=== PATIENT | male | born 1980 | race Caucasian/White ===

== ENCOUNTER 2023-11-20 15:48 | Emergency (ER) | payer OTHER, MEDICAID, SELFPAY ==
[2023-11-20 15:58] VITALS: BP 163/94; PULSE 78; RESP 18; TEMP 36.6; O2SAT 99; BMI 34.9
--- NOTE | 2023-11-20 17:36 | ED.WOUNDLAC ---
HPI - Wound/Laceration <León Rai PA-C - Last Filed: 11/20/23 17:52> General Chief Complaint: Wound/Laceration Stated Complaint: sores on face Time Seen by Provider: 11/20/23 16:17 Source: patient Mode of arrival: Ambulatory History of Present Illness HPI narrative: This is a 43-year-old male presents to the emergency department due to multiple ?sores? on his face as well as as belt line. States he has a history of MRSA infections and this feels similar. Denies any fevers, spreading redness, injuries, or any other concerning signs or symptoms. Related Data Previous Rx's Medication Instructions Recorded sulfamethoxazole 800 1 tab PO BID #14 tabs 11/20/23 mg-trimethoprim 160 mg tablet (Bactrim DS) Allergies Allergy/AdvReac Type Severity Reaction Status Date / Time morphine Allergy Severe Rash Verified 11/20/23 16:04 Review of Systems <León Rai PA-C - Last Filed: 11/20/23 17:52> Review of Systems Narrative: GENERAL: Denies chills, fatigue, malaise, fever, sweats. HEENT: Denies sinus pain, ear pain, sore throat, difficulty swallowing, dizziness. RESPIRATORY: Denies dyspnea, cough, wheezing, hemoptysis, sputum. CARDIOVASCULAR: Denies chest pain, palpitations, orthopnea, edema, GASTROINTESTINAL: Denies nausea, vomiting, abdominal pain, diarrhea, constipation, melena. : Denies dysuria, frequency, incontinence, hematuria, urinary retention. MUSCULOSKELETAL: denies weakness, joint pain, or bony pain SKIN: Reports skin sores NEUROLOGIC: Denies weakness, headache, numbness, change in speech, confusion, seizures, incoordination. PSYCHIATRIC: No concerning psychosocial issues. 12 point review of systems is negative except for those stated above Patient History <SESAR Marques Last Filed: 11/20/23 17:52> Social History Smoking Status: Current some day smoker Smoking Status: Current some day smoker alcohol intake frequency: a few times a month Substance Use Type: marijuana, crack/cocaine, painkillers and methamphetamine Exam <SESAR Marques Last Filed: 11/20/23 17:52> Narrative Exam Narrative: GENERAL: Well-developed patient, in mild distress. HEAD: Atraumatic. Normocephalic. EYES: Pupils equal round and reactive. Extraocular motions intact. No scleral icterus. No injection or drainage. ENT: Nose without bleeding, purulent drainage. Throat without erythema, tonsillar hypertrophy or exudate. Airway patent. NECK: Trachea midline. Non tender EXTREMITIES: No edema or joint tenderness. NEURO: AOx3. SKIN: Multiple sores across the well as belt line with purulent discharge consistent with a MRSA infection Initial Vital Signs Initial Vital Signs: Vital Signs Temperature 97.8 F 11/20/23 15:58 Pulse Rate 78 11/20/23 15:58 Respiratory Rate 18 11/20/23 15:58 Blood Pressure 163/94 H 11/20/23 15:58 Pulse Oximetry 99 11/20/23 15:58 Oxygen Delivery Method Room Air 11/20/23 15:58 <Michael Lagos DO - Last Filed: 11/20/23 17:56> Initial Vital Signs Initial Vital Signs: Vital Signs Temperature 97.8 F 11/20/23 15:58 Pulse Rate 78 11/20/23 15:58 Respiratory Rate 18 11/20/23 15:58 Blood Pressure 163/94 H 11/20/23 15:58 Pulse Oximetry 99 11/20/23 15:58 Oxygen Delivery Method Room Air 11/20/23 15:58 Course <León Rai PA-C - Last Filed: 11/20/23 17:52> Vital Signs Vital signs: Vital Signs - 8 hr 11/20/23 15:58 Temperature 97.8 F Pulse Rate 78 Respiratory Rate 18 Blood Pressure 163/94 H Pulse Oximetry 99 Oxygen Delivery Method Room Air <DO Avelina Stewart Last Filed: 11/20/23 17:56> Vital Signs Vital signs: Vital Signs - 8 hr 11/20/23 15:58 Temperature 97.8 F Pulse Rate 78 Respiratory Rate 18 Blood Pressure 163/94 H Pulse Oximetry 99 Oxygen Delivery Method Room Air MDM - Wound/Laceration <León aRi PA-C - Last Filed: 11/20/23 17:52> MDM Narrative Medical decision making narrative: ED course: This is a 43-year-old male presents emergency department due to sores across his face and abdomen consistent with a MRSA infection. Oral antibiotics prescribed. No significant spreading erythema or fevers or other systemic symptoms suggestive of sepsis. Vitals within normal limits. CC: Skin sores Complicating co-morbidities: None Data collected from: Previous notes Medical records reviewed: Patient has not been to the emergency department the past Differential considered, but not limited to: MRSA, cellulitis Exam documented above, pertinent findings include: Sores consistent with a MRSA Lab Test results independently reviewed as above. Pertinent findings: None obtained Imaging studies independently reviewed: None obtained Scores Used: None MIPS Elements: None Consultations: None Treatments: None Re-evaluations: None Discussion: Discussed plan with the patient was comfortable with the plan Diagnosis: MRSA infection Disposition: see below, along with detailed discharge instructions that have been reviewed with patient as well as indications for ED re-evaluation and additional outpatient follow up Discharge Plan Departure Patient Disposition: Home Clinical Impression: MRSA (methicillin resistant Staphylococcus aureus) Activity Restrictions/Additional Instructions: Thank you for coming to the [facility] Emergency Department today. This appears to be an MRSA infection. Please take the oral antibiotics as prescribed. I sent the medication to [facility] in [place]. Please return to the emergency department if you develop any worsening infection, fevers, or any other concerning signs or symptoms. I hope you feel better soon. Please follow up with your primary care provider within a week if your symptoms continue. If you do not have a primary care provider please contact the [facility] Resource line at [phone]. They will ask some questions about your medical history and help you get set up with a provider in the community. Prescriptions: New sulfamethoxazole-trimethoprim [Bactrim DS] 800-160 mg tablet 1 tab PO BID Qty: 14 0RF Referrals: Miscellaneous,Doctor, [Primary Care Provider] - Stand Alone Forms: Patient Portal/API ED Sign-out <Michael Lagos, DO - Last Filed: 11/20/23 17:56> Cosign ED Attending Yaniqueature Attestation: Dr Lagos Co-Sign Statement: I was available for consultation during this patient's emergency department visit. This chart is signed by myself for administrative purposes only. I did not have direct contact with this patient during this visit. They were seen independently by the APC.
== END 2023-11-20 17:50 | disposition home or self-care (01) ==
PROVIDERS: Emergency Provider Physician Assistant Medical
DX: A49.02 Methicillin resistant Staphylococcus aureus infection, unspecified site (principal)
CPT/HCPCS: 99281; 99283

== ENCOUNTER 2024-02-24 15:28 | Emergency (ER) | payer OTHER, MEDICAID, SELFPAY ==
[2024-02-24 15:31] VITALS: BP 140/83; PULSE 79; RESP 18; TEMP 37.6; O2SAT 98; BMI 34.9
[2024-02-24 16:22] LABS: Strep Grp A by PCR Rapid Negative (Negative)
--- NOTE | 2024-02-24 19:16 | ED.NECK ---
HPI - Neck Pain/Injury General Chief Complaint: Neck Pain/Injury Stated Complaint: swollen neck, hurts to swallow Time Seen by Provider: 02/24/24 18:39 Mode of arrival: Ambulatory History of Present Illness HPI Narrative: 2-3 days of sore throat and trouble swallowing. No fever Related Data Previous Rx's Medication Instructions Recorded sulfamethoxazole 800 1 tab PO BID #14 tabs 11/20/23 mg-trimethoprim 160 mg tablet (Bactrim DS) amoxicillin 500 mg capsule 1,000 mg (2 x 500 mg) PO DAILY #20 02/24/24 caps Allergies Allergy/AdvReac Type Severity Reaction Status Date / Time morphine Allergy Severe Rash Verified 11/20/23 16:04 Review of Systems Review of Systems Narrative: see HPI Patient History Social History Smoking Status: Current every day smoker Smoking Status: Current every day smoker tobacco type: cigarettes and vaping alcohol intake frequency: a few times a month Substance Use Type: marijuana, crack/cocaine, heroin, painkillers and methamphetamine Exam Initial Vital Signs Initial Vital Signs: Vital Signs Temperature 99.6 F 02/24/24 15:31 Pulse Rate 79 02/24/24 15:31 Respiratory Rate 18 02/24/24 15:31 Blood Pressure 140/83 02/24/24 15:31 Pulse Oximetry 98 02/24/24 15:31 Oxygen Delivery Method Room Air 02/24/24 15:31 Const: Awake, alert, no acute distress, nontoxic appearing Mouth: extensive exudates on bilateral tonsils. No uvular deviation. Tonsillar edema present. Airway patent, tolerating secretions Skin: Warm, Dry, intact, no rashes Neuro: AO x3, CN II-XII grossly intact, moves all extremities Course Orders Ordered: Discontinued Medications Amoxicillin (Amoxicillin 250 Mg Capsule) 1,000 mg PO NOW ONE Stop: 02/24/24 19:16 Last Admin: 02/24/24 19:38 Dose: 1,000 mg Documented By: MARY Dexamethasone (Dexamethasone 10 Mg/Ml Vial) 10 mg PO NOW ONE Stop: 02/24/24 19:16 Last Admin: 02/24/24 19:38 Dose: 10 mg Documented By: MARY Lidocaine HCl (Lidocaine Viscous 2% 15 Ml Solution) 15 ml PO NOW ONE Stop: 02/24/24 19:16 Last Admin: 02/24/24 19:38 Dose: 15 ml Documented By: MARY Vital Signs Vital signs: Vital Signs - 8 hr 02/24/24 19:25 Temperature 98.5 F Pulse Rate 76 Respiratory Rate 20 Blood Pressure 119/73 Pulse Oximetry 96 Oxygen Delivery Method Room Air MDM - Neck Pain/Injury Lab Data Labs: Lab Results 02/24/24 Range/Units 15:55 Group A Strep (PCR) Negative (Negative) MDM Narrative Medical decision making narrative: Sore throat with extensive exudates. Strep negative but due to presentation will treat with decadron and antibiotics. Given viscous lidocaine in ED as well as decadron and initial abx dose Discharge Plan Departure Patient Disposition: Home Clinical Impression: Pharyngitis Instructions: DI for Strep Throat Activity Restrictions/Additional Instructions: Finish all of your antibiotics as prescribed. Take Tylenol and ibuprofen as needed for pain. Use salt water gargles as needed for comfort Prescriptions: New amoxicillin 500 mg capsule 1,000 mg PO DAILY Qty: 20 0RF No Action sulfamethoxazole-trimethoprim [Bactrim DS] 800-160 mg tablet 1 tab PO BID Qty: 14 0RF Referrals: Miscellaneous,Doctor, MD [Primary Care Provider] - Stand Alone Forms: Patient Portal/API
[2024-02-24 19:25] VITALS: BP 119/73; PULSE 76; RESP 20; TEMP 36.9; O2SAT 96
[2024-02-24] MEDS: LIDOCAINE VISCOUS 2% 15 ML SOLUTION PO (19:38)
[2024-02-24] MEDS: AMOXICILLIN 250 MG CAPSULE 1000 MG PO (19:38)
[2024-02-24] MEDS: DEXAMETHASONE 10 MG/ML VIAL PO (19:38)
== END 2024-02-24 19:50 | disposition home or self-care (01) ==
PROVIDERS: Emergency Medicine; Emergency Provider Emergency Medicine
DX: J02.9 Acute pharyngitis, unspecified (principal); F17.210 Nicotine dependence, cigarettes, uncomplicated; F17.290 Nicotine dependence, other tobacco product, uncomplicated
CPT/HCPCS: 87070; 87147; 87651; 93005; 99283; J1100

== ENCOUNTER 2024-11-27 04:08 | Emergency (ER) | payer OTHER, SELFPAY ==
[2024-11-27 04:16] VITALS: BP 154/95; PULSE 96; RESP 20; TEMP 35.5; O2SAT 98; BMI 30.4
--- NOTE | 2024-11-27 04:17 | DI.RAD.S_ITS ---
PROCEDURE: XR FOOT RT MIN 3V INDICATIONS: injury TECHNIQUE: 3 views of the foot were acquired. COMPARISON: None. FINDINGS: Bones: Mildly displaced fractures of the 2nd and 3rd metatarsal necks. No dislocation. Mild calcaneal enthesopathy Soft tissues: No suspicious calcifications. IMPRESSION: Mildly displaced 2nd and 3rd metatarsal neck fractures. No significant discrepancy from the preliminary report. Dictated by: Kushal Grayson M.D. on 11/27/2024 at 8:54 Approved by: Kushal Grayson M.D. on 11/27/2024 at 8:55
--- NOTE | 2024-11-27 04:53 | ED_ITS ---
HPI - Extremity Injury (Lower) General Chief Complaint: Extremity Injury, Lower Stated Complaint: possible rt foot broken Time Seen by Provider: 11/27/24 04:33 Source: patient Mode of arrival: Ambulatory History of Present Illness HPI Narrative: Patient is a 44-year-old male with prior history of drug abuse presenting to day with right foot pain. Reports he slipped on ice hitting it tonight it has been throbbing. He is tried elevating and icing without any relief. He does not take any Tylenol or ibuprofen. Does not want any here. He has been unable to bear weight he has crutches. Related Data Previous Rx's Medication Instructions Recorded sulfamethoxazole 800 1 tab PO BID #14 tabs 11/20/23 mg-trimethoprim 160 mg tablet (Bactrim DS) amoxicillin 500 mg capsule 1,000 mg (2 x 500 mg) PO DAILY #20 02/24/24 caps Allergies Allergy/AdvReac Type Severity Reaction Status Date / Time morphine Allergy Severe Rash Verified 11/20/23 16:04 Patient History Social History Smoking Status: Current every day smoker Smoking Status: Current every day smoker tobacco type: cigarettes and vaping alcohol intake frequency: a few times a month Exam Initial Vital Signs Initial Vital Signs: Vital Signs Temperature 96 F L 11/27/24 04:16 Pulse Rate 96 H 11/27/24 04:16 Respiratory Rate 20 11/27/24 04:16 Blood Pressure 154/95 H 11/27/24 04:16 Pulse Oximetry 98 11/27/24 04:16 Oxygen Delivery Method Room Air 11/27/24 04:16 GENERAL: Well-appearing, well-nourished and in no acute distress. CARDIOVASCULAR: peripheral pulses in tact, cap refill <2 sec RESPIRATORY: No respiratory distress, speaks in full sentences without difficulty EXTREMITIES: Normal range of motion, no clubbing or edema. Neurovascularly intact Right foot significant swelling distal pedal pulse intact good flexion and extension NEUROLOGICAL: Cranial nerves II through XII grossly intact. Normal gait and speech. SKIN: Warm, dry, no petechiae, no rashes or lesions. Course Orders Ordered: ED Orders 11/27/24 04:17 XR foot RT min 3V Stat Vital Signs Vital signs: Vital Signs - 8 hr 11/27/24 04:16 11/27/24 05:10 Temperature 96 F L Pulse Rate 96 H 74 Respiratory Rate 20 18 Blood Pressure 154/95 H 155/90 H Pulse Oximetry 98 100 Oxygen Delivery Method Room Air MDM - Extremity Injury (Lower) Imaging Data Extremity x-ray #1: Radiologist's Impression: Preliminary report minimally displaced fractures of 2nd and 3rd metatarsal MDM Narrative Medical decision making narrative: Patient offered Tylenol Motrin here in the ED. He is found to have fractures 2nd and 3rd metatarsals he was given orthopedic shoe. He has crutches already no weight-bearing until followed up with ortho. Not a good for narcotic medications. Deems to be distracted on his phone and not wanting other options. Discharge Plan Departure Patient Disposition: Home Clinical Impression: Fracture of right toe Instructions: DI for Toe Fracture Activity Restrictions/Additional Instructions: *You have been diagnosed with bright toe fractures 2 and 3 *What to do: Where orthopedic shoe at all times. Use crutches no weight- bearing. Elevate and ice as needed *Continue to take medications as directed *Follow up with your primary care provider in 2-3 days or call [phone] Call and follow-up with orthopedics call today *Return to ER if you should have increasing pain swelling numbness or any new, worsening or concerning symptoms Prescriptions: No Action sulfamethoxazole-trimethoprim [Bactrim DS] 800-160 mg tablet 1 tab PO BID Qty: 14 0RF amoxicillin 500 mg capsule 1,000 mg PO DAILY Qty: 20 0RF Referrals: Miscellaneous,DoctorMD [Primary Care Provider] - Stand Alone Forms: Patient Portal/API/Survey
[2024-11-27 05:10] VITALS: BP 155/90; PULSE 74; RESP 18; O2SAT 100
== END 2024-11-27 05:11 | disposition home or self-care (01) ==
PROVIDERS: Emergency Provider Emergency Medicine
DX: S92.501A Displaced unspecified fracture of right lesser toe(s), initial encounter for closed fracture (principal); W00.0XXA Fall on same level due to ice and snow, initial encounter
CPT/HCPCS: 73630; 99283

== ENCOUNTER 2025-04-17 02:25 | Emergency (ER) | payer OTHER, SELFPAY ==
[2025-04-17 02:55] VITALS: BP 154/80; PULSE 78; RESP 16; TEMP 36.8; O2SAT 98; BMI 30.4
[2025-04-17 06:24] LABS: Acetaminophen < 10 ug/mL (10-30); Add Manual Diff / Slide Review NO; Alanine Aminotransferase 46 IU/L (<50); Albumin 4.6 g/dL (3.5-5.0); Albumin Globulin Ratio 1.4 (1.0-2.8); Alkaline Phosphatase 60 U/L (38-126); Aspartate Aminotransferase 71 IU/L (17-59); BUN Creatinine Ratio 13.4 (6-22); Basophils Absolute Auto 200 /uL (0-100); Basophils Percent Auto 2.2 % (0-2); Bilirubin Total 0.4 mg/dL (0.2-1.3); Bilirubin Unconjugated 0.1 mg/dL (0.0-1.1); Blood Urea Nitrogen 13 mg/dL (9-20); Carbon Dioxide 26 mmol/L (22-32); Chloride 103 mmol/L (98-107); Eosinophils Absolute Auto 200 /uL (0-450); Eosinophils Percent Auto 1.7 % (2-4); Estimated Glomerular Filt Rate > 60 mL/min (>60); Ethanol (ETOH) < 10 mg/dL (<10); Globulin 3.2 g/dL (1.7-4.1); Glucose 143 mg/dL (70-99); HEMOLYSIS < 15 (0-50); Hematocrit 39.2 % (41-53); Hemoglobin 13.2 g/dL (13.5-17.5); Lactate (Lactic Acid) 1.2 mmol/L (0.7-2.1); Lymphocytes Absolute Auto 2600 /uL (1100-4500); Lymphocytes Percent Auto 24.2 % (25-40); Mean Corpuscular HGB Conc 33.7 % (30-36); Mean Corpuscular Hemoglobin 27.7 PG (26-34); Mean Corpuscular Volume 82.2 fL (80-100); Monocytes Absolute Auto 700 /uL (0-900); Neutrophils Absolute Auto 6900 /uL (1500-7000); Neutrophils Percent Auto 64.9 % (50-75); Platelet Count 239 X10^3/uL (150-400); Red Blood Cell Count 4.77 X10^6/uL (4.5-5.9); Red Cell Distribution Width 13.4 % (11.6-14.8); Salicylate < 1.0 mg/dL (<20); Sodium 138 mmol/L (137-145); Total Protein 7.8 g/dL (6.3-8.2); White Blood Cell Count 10.7 X10^3/uL (4.5-11.0)
--- NOTE | 2025-04-17 06:30 | ED_ITS ---
HPI - General Adult General Chief complaint: Toxicology Problem Stated complaint: ate 24 tabs of tylenol pm Time Seen by Provider: 04/17/25 02:41 Source: patient Mode of arrival: Ambulatory History of Present Illness HPI narrative: (Patient seen 0330 during down time, initial paper charting dictated into [employer] EHR format later in shift) 44-year-old male with history of polysubstance abuse, ongoing use of fentanyl and methamphetamine and cannabis, had taken Tylenol PM 500 mg acetaminophen strength on Tuesday evening, 24 tablets, in context of drinking alcohol, feeling depressed, tending to hurt himself. He no longer has thoughts of hurting himself, however had an episode of emesis, and seemed concerned that there might be some significant toxicity from that previous Tylenol ingestion. He does not want detox services. Related Data Previous Rx's ?Medication ?Instructions ?Recorded sulfamethoxazole 800 1 tab PO BID #14 tabs mg-trimethoprim 160 mg tablet (Bactrim DS) amoxicillin 500 mg capsule 1,000 mg (2 x 500 mg) PO DA ALEXANDRE #20 02/24/24 caps Allergies Allergy/AdvReac Type Severity Reaction Status Date / Time morphine Allergy Severe Rash Verified 11/20/23 16:04 Patient History tobacco type: cigarettes and vaping alcohol intake frequency: a few times a month Exam Narrative Exam Narrative: GENERAL: Well-developed patient, in mild distress. HEAD: Atraumatic. Normocephalic. EYES: Pupils equal round and reactive. Extraocular motions intact. No scleral icterus. No injection or drainage. ENT: Nose without bleeding, purulent drainage. Throat without erythema, tonsillar hypertrophy or exudate. Airway patent. NECK: Trachea midline. Non tender CARDIOVASCULAR: Regular rate and rhythm without murmurs, gallops, or rubs. RESPIRATORY: Clear to auscultation. Breath sounds equal bilaterally. No wheezes, rales, or rhonchi. GASTROINTESTINAL: Abdomen soft, non-tender, nondistended. EXTREMITIES: No edema or joint tenderness. BACK: Nontender without deformity or crepitance. No flank tenderness. NEURO: AOx3. Motor functions grossly nonfocal SKIN: No rash or erythema of visible areas Initial Vital Signs Initial Vital Signs: Vital Signs Temperature 98.2 F 04/17/25 02:55 Pulse Rate 78 04/17/25 02:55 Respiratory Rate 16 04/17/25 02:55 Blood Pressure 154/80 H 04/17/25 02:55 Pulse Oximetry 98 04/17/25 02:55 Oxygen Delivery Method Room Air 04/17/25 02:55 Course Orders Ordered: ED Orders 04/17/25 02:50 Acetaminophen Stat Complete Blood Count AUTO DIFF Stat Comprehensive Metabolic Panel Stat Ethanol (ETOH) Stat Hepatic (Liver) Panel Stat Lactate (Lactic Acid) Stat Prothrombin Time INR Stat Salicylate Stat Vital Signs Vital signs: Vital Signs - 8 hr 04/17/25 02:55 Temperature 98.2 F Pulse Rate 78 Respiratory Rate 16 Blood Pressure 154/80 H Pulse Oximetry 98 Oxygen Delivery Method Room Air Medical Decision Making Lab Data Lab results reviewed: Yes I reviewed the patient's lab results. Lab results narrative: White blood cell count 34163, hemoglobin 13.2, platelets adequate. Glucose 143. Renal function normal. Serum CO2 normal. Electrolytes unremarkable. Liver functions also unremarkable. INR 1.0 was normal. Acetaminophen level negative. Ethanol level negative. Salicylate level negative. 04/17/25 02:50 04/17/25 02:50 Labs: Lab Results 04/17/25 Range/Units 02:50 WBC 10.7 (4.5-11.0) X10^3/uL RBC 4.77 (4.5-5.9) X10^6/uL Hgb 13.2 L (13.5-17.5) g/dL Hct 39.2 L (41-53) % MCV 82.2 (80-100) fL MCH 27.7 (26-34) PG MCHC 33.7 (30-36) % RDW 13.4 (11.6-14.8) % Plt Count 239 (150-400) X10^3/uL Neut % (Auto) 64.9 (50-75) % Lymph % (Auto) 24.2 L (25-40) % [place] % (Auto) 7.0 (3-14) % Eos % (Auto) 1.7 L (2-4) % Baso % (Auto) 2.2 H (0-2) % Neut # (Auto) 6900 (9357-3345) /uL Lymph # (Auto) 2600 (6315-8177) /uL [place] # (Auto) 700 (0-900) /uL Eos # (Auto) 200 (0-450) /uL Baso # (Auto) 200 H (0-100) /uL PT 11.4 (9.4-12.5) SECONDS INR 1.0 (0.9-1.3) Sodium 138 (137-145) mmol/L Potassium 4.0 (3.4-5.1) mmol/L Chloride 103 (98-107) mmol/L Carbon Dioxide 26 (22-32) mmol/L BUN 13 (9-20) mg/dL Creatinine 0.97 (0.66-1.25) mg/dL Estimated GFR > 60 (>60) mL/min BUN/Creatinine Ratio 13.4 (6-22) Glucose 143 H (70-99) mg/dL Lactate 1.2 (0.7-2.1) mmol/L Calcium 9.0 (8.4-10.2) mg/dL Total Bilirubin 0.4 (0.2-1.3) mg/dL Conjugated Bilirubin 0.0 (0.0-0.3) md/dL Unconjugated Bilirubin 0.1 (0.0-1.1) mg/dL AST 71 H (17-59) IU/L ALT 46 (<50) IU/L Alkaline Phosphatase 60 (38-126) U/L Total Protein 7.8 (6.3-8.2) g/dL Albumin 4.6 (3.5-5.0) g/dL Globulin 3.2 (1.7-4.1) g/dL Albumin/Globulin Ratio 1.4 (1.0-2.8) Salicylates < 1.0 (<20) mg/dL Acetaminophen < 10 (10-30) ug/mL Ethyl Alcohol < 10 (<10) mg/dL [facility] Narrative Medical decision making narrative: 44-year-old male with history of polysubstance abuse with ongoing use 6 hours ago of fentanyl and methamphetamine and cannabis. Had concerns about toxicity from non accidental ingestion of Tylenol PM 500 mg acetaminophen strength on Tuesday evening 3 days ago. Had single episode of emesis. Afebrile, sirs screen negative. Lab data: White blood cell count 71949, hemoglobin 13.2, platelets adequate. Glucose 143. Renal function normal. Serum CO2 normal. Electrolytes unremarkable. Liver functions also unremarkable. INR 1.0 was normal. Acetaminophen level negative. Ethanol level negative. Salicylate level negative. Patient did not seem to have any have any antihistamine toxicity from prior dose, liver functions unremarkable. Case discussed with poison control. No further action at this time. Offered detox services, he declined. Discharged home with . Encouraged to stop use of drugs and alcohol. Encouraged to seek mental health services as an outpatient. Discharged home with family. Return precautions discussed. Discharge Plan Departure Patient Disposition: Home Clinical Impression: Tylenol ingestion, Polysubstance abuse Activity Restrictions/Additional Instructions: (discharge document produced during downtime, scanned into record, see separate document) Prescriptions: No Action sulfamethoxazole-trimethoprim [Bactrim DS] 800-160 mg tablet 1 tab PO BID Qty: 14 0RF amoxicillin 500 mg capsule 1,000 mg PO DAILY Qty: 20 0RF Referrals: Miscellaneous,Doctor, [Primary Care Provider, Medical] Stand Alone Forms: Patient Portal/API
[2025-04-17 07:05] LABS: Prothrombin Time 11.4 SECONDS (9.4-12.5)
== END 2025-04-17 04:45 | disposition home or self-care (01) ==
PROVIDERS: Emergency Provider Emergency Medicine
DX: F15.10 Other stimulant abuse, uncomplicated (principal); F11.10 Opioid abuse, uncomplicated; T39.1X2A Poisoning by 4-Aminophenol derivatives, intentional self-harm, initial encounter; R11.10 Vomiting, unspecified
CPT/HCPCS: 80053; 80076; 80320; 80329; 83605; 85025; 85610; 99282; 99283; G0480